=== PATIENT | female | born 1985 | race Caucasian/White ===

== ENCOUNTER 2017-04-29 05:23 | Day surgery (SDC) | payer BC ==
[~2017-04-29] VITALS: Ht 160 cm; Wt 131.5 kg
--- NOTE | ~2017-04-29 | P ---
[facility] [place] [address] PROCEDURE REPORT Name: ZULY ESPINOSA Room #: DEP [facility].#: [id number] Admission: 04/29/17 Attend Phys: Dmitri Gilbert MD Discharge: 04/29/17 Date of : 87 Report #: [id number] THIS REPORT FOR: //name// CC: Dmitri Ac DATE OF SURGERY: 04/29/2017. PREOPERATIVE DIAGNOSIS: Left breast mass/large left fibroadenoma. POSTOPERATIVE DIAGNOSIS: Left breast mass/large left fibroadenoma. PROCEDURES PERFORMED: Excisional biopsy of left breast mass/fibroadenoma, large fibroadenoma. ANESTHESIA: General. COMPLICATIONS: None. ESTIMATED BLOOD LOSS: 5 mL. SURGEON: Dmitri Gilbert M.D. DESCRIPTION OF PROCEDURE: With the patient under general anesthesia with LMA, the left breast is prepped and draped in sterile fashion. Timeout was performed. A 0.25% Marcaine was used to anesthetize the skin. The mass was palpable and also ultrasound confirmed its location in the left upper quadrant. The incision was made at the breast fold in the upper outer quadrant. This attempted to hide the scar. The incision is about an inch and a half to 2 inches in length. After incising through skin and subcutaneous tissue, incising through the skin and subcutaneous tissue, the dissection was carried into the breast tissue and this fibroadenoma was found. There is a vessel that was clipped and then also sutured with 4-0 PDS. The breast mass is bilobed and the mass was grasped with Allis and the surrounding tissue was dissected free using cautery. The mass was then removed without difficulty. On palpation there may be this either bilobed or maybe two fibroadenoma side to side. Specimen was given to pathology for permanent sectioning. Description of the mass was discussed with the pathologist. Hemostasis obtained with irrigation cautery. The superficial subcutaneous tissue was closed with 4-0 PDS. Skin was closed with 5-0 PDS. Dermabond applied. Fluffy dressing were applied. Tape were applied. The patient was taken to recovery room. <ELECTRONICALLY SIGNED> By: Dmitri Gilbert MD 05/03/17 1821 [id number] Dmitri Gilbert MD /nt
--- NOTE | ~2017-04-29 | S ---
[facility] [address] [place] [address] SURGICAL PATH RPT PROCEDURE Name: ZULY ESPINOSA Room #: DEP [facility]#: [id number] Admission: 04/29/17 Date of : 87 Discharge: 04/29/17 Report #: [id number] Path Case #: [id number] PATHOLOGY REPORT COLLECTION DATE: 04/29/2017 RECEIVED DATE: 04/29/2017 SUBMITTING PHYS: Dr. Dmitri Gilbert OTHER PHYS: Dr. Chase Ac SPECIMEN(S) RECEIVED: A.Left breast mass * * * * * * * * * * * * FINAL DIAGNOSIS: Breast, left breast mass, lumpectomy: - Fibroadenoma with focal myxoid changes. - Negative for atypia or malignancy. - Approaches the black inked margin along with cautery (please see comment). COMMENT: Examination shows a fibroadenoma with focal myxoid changes. Stromal hypercellularity, mitotic figures, or other findings to suggest phyllodes tumor are not identified. The fibroadenoma approaches the inked margin focally. Correlation with intraoperative findings for margin status is suggested. Slides A6, A12, and A14 were co-reviewed by Dr. Jason Cueva who agrees with my diagnosis. (IUV:mml; 05/02/2017) PATHOLOGIST: Hannah Murphy M.D. REPORT ELECTRONICALLY SIGNED BY: Hannah Murphy M.D. DATE/TIME: 05/02/2017 16:38 * * * * * * * * * * * * GROSS PATHOLOGY: The specimen is received in formalin labeled "Zuly Espinosa, left breast mass". Received is an 11 g unoriented segment of yellow-rosales, lobulated to white-rosales, fibrous tissue measuring 4.5 x 2.2 x 1.8 cm in greatest dimensions. The surgical margin is inked. Sectioning reveals 2 distinct white-rosales, fibrous nodules measuring 2.8 x 2.2 x 1.5 and 2.6 x 2.2 x 1.5 cm. The remainder the specimen is comprised of yellow-rosales, lobulated tissue, which encompasses approximately 10% of the specimen. The specimen is submitted entirely in cassettes A1 through A16. The cold ischemic time is less than 1 minute. The total formalin fixation time is 10 hours and 4 minutes. [address] [place] [address] SURGICAL PATH RPT PROCEDURE Name: ZULY ESPINOSA Room #: DEP [facility] Shamika#: [id number] Admission: 04/29/17 Date of : 87 Discharge: 04/29/17 Report #: [id number] Path Case #: [id number] (CAA; 04/29/2017) CLINICAL HISTORY: Left breast mass INITIAL CPT CODE(S): 36021 Professional services performed by [facility] at [facility] [address] [place] [address] Technical services performed by [facility] at [address] [place] [address], [address], [place] [address]. [facility] [address] [place] [address] PHONE: [phone] DIRECTOR: Royal Crane M.D. * * * END OF REPORT * * *
--- NOTE | ~2017-04-29 | EKG ---
[address] [address] ELECTROCARDIOGRAM REPORT Name: ZULY ESPINOSA Room #: 150-2 [facility]#: [id number] Admission: 04/29/17 Attend Phys: Dmitri Gilbert MD Discharge: Date of : 87 Report #: [id number] THIS REPORT FOR: //name// [facility] Test Date: 2017-04-29 Test Time: 09:44:33 Pat Name: ZULY ESPINOSA Department: Room: [facility] Gender: F Structures Assembler: ABRAHAM : 1985 Requested By: Dmitri Gilbert Order Number: [id number] MD: Roni Shelby Measurements Intervals [place] Rate: 77 P: 8 SC: 175 QRS: 15 QRSD: 99 T: 26 QT: 396 QTc: 449 Interpretive Statements Sinus rhythm Borderline T abnormalities, anterior leads Compared to ECG 09/16/2011 13:18:42 T-wave abnormality now present Electronically Signed On 05-02-2017 8:25:05 CDT by Roni Shelby [email or web address] <ELECTRONICALLY SIGNED> By: Roni Shelby MD, [facility] 05/02/17 0825 Roni Shelby MD, [facility] /EPI
[~2017-04-29 05:23] MED LIST: AMITRIPTYLINE H10 M3 PO; CELEXA20 MG PO; CIPRO500 MG PO; HYDROCODONE-AP1 EAC6 PO; IBUPROFEN 200200 M1 PO; IBUPROFEN 600600 M1 PO; IRON-150 TABLE1 EACH OR; LABETALOL 100100 MG PO; LOESTRIN1 EAC1 PO; LOPRESSOR25 PO; NOHOMEMEDICATIONS; NORCO 5-325 TA1 EACH PO; PRENATAL OR; TOPROL XL25 MG PO; TYLENOL325 MG PO; WELLBUTRIN SR150 MG PO; ZOLOFT 50 MG TA50 M1 PO
[2017-04-29 09:50] VITALS: BP 147/84
[2017-04-29] MEDS ORDERED: NORCO 5-325 TA1 EACH PO (12:12)
[2017-04-29 12:30] VITALS: BP 147/84
== END 2017-04-29 12:55 | disposition home or self-care (01) ==
LOC: TBA 05:23 → OR 05:23
DX: D24.2 Benign neoplasm of left breast (principal); I10 Essential (primary) hypertension; F32.89 Other specified depressive episodes; F41.8 Other specified anxiety disorders; Z98.890 Other specified postprocedural states; Z79.899 Other long term (current) drug therapy
CPT/HCPCS: 50010; 50101; 50386; 50417; 51301; 54118; 56525; 56526; 62110; 62900; 70005

== ENCOUNTER → 2020-05-27 | Outpatient (CLI) | payer OTHER | LOC: RAD 13:54 | PROVIDERS: ATTEND Neuromusculoskeletal Medicine & OMM | DX: N63.24 Unspecified lump in the left breast, lower inner quadrant (principal) ==